=== PATIENT | female | born 1950 | race Two or more races ===

== ENCOUNTER 2017-04-20 07:49 | Inpatient (IN) | payer OTHER ==
[~2017-04-20] VITALS: Ht 157.5 cm; Wt 59.7 kg
[~2017-04-20 07:49] MED LIST: ATOR20TA50 PO; CEPH500C PO; ERGO2000 PO; FURO40TA4 PO; GABA-497 PO; GLIP-116 PO; HYDR-2650 PO; METO25TA5 PO; TRAM50TA2 PO
[2017-04-20 08:46] LABS: Basophils # (auto) 0 uL; CONDITION Y; Eosinophils # (auto) 0 uL; Eosinophils % (auto) 0.2 % (0.0-7.0); Hematocrit 29.2 % (36.0-46.0); Hemoglobin 9.8 g/dL (12.2-16.2); Lymphocytes # (auto) 0.6 uL; Lymphocytes % (auto) 6.2 % (10.0-50.0); Mean Corpuscular Hemoglobin 31.6 pg (28.0-32.0); Mean Corpuscular Hgb Conc. 33.6 g/dL (32.0-36.0); Mean Corpuscular Volume 94.1 fL (80.0-100.0); Mean Platelet Volume 8.7 fL (7.4-10.4); Monocytes # (auto) 0.4 uL; Monocytes % (auto) 4.6 % (0.0-12.0); Neutrophils # (auto) 8.7 uL; Platelet Count (auto) 172 10^3/uL (140-450); Red Cell Distribution Width 15.4 % (11.6-16.0); White Blood Cell 9.8 10^3/uL (4.4-10.8)
[2017-04-20 08:53] LABS: Albumin 3.6 g/dL (3.4-5.0); Calcium 7.8 mg/dL (8.5-10.1)
[2017-04-20 08:56] LABS: Potassium 7.8 mmol/L (3.5-5.1)
[2017-04-20 09:01] LABS: BUN/Creatinine Ratio 8.4; Bilirubin, Total 0.6 mg/dL (0.2-1.0); Total Protein 7.1 g/dL (6.4-8.2)
[2017-04-20] MEDS ORDERED: ALBUTEROL SULF 2.5 MG/0.5ML(0.5%) NEB SOLN NEB STA (09:14)
[2017-04-20] MEDS ORDERED: DEXTROSE (50%) 50ML SYRG IV ONE (09:15)
[2017-04-20] MEDS ORDERED: InsuLIN REG 1unit/0.01ml Soln (100units/ml) IV ONE (09:15)
[2017-04-20] MEDS ORDERED: SODIUM POLYSTYRENE SULF 15GM/60ML SUSP PO ONE (09:15)
[2017-04-20] MEDS ORDERED: CALCIUM GLUC 4.65 MEQ/10ML 4.65 MEQ in SODIUM CHL 0.9% 50 ML IV ONE (09:15)
[2017-04-20] MEDS ORDERED: SODIUM BICARBONATE 8.4% INJ 50ML SYRINGE IV ONE (09:15)
[2017-04-20] MEDS ORDERED: FUROSEMIDE 20 MG/2 ML VIAL IV ONE (09:15)
[2017-04-20] MEDS ORDERED: cefTRIAXone 1GM/50ML D5W 50 ML IV ONE (14:00)
[2017-04-20] MEDS ORDERED: VANCOMYCIN PER PHARMACY 0 MG IV SCH (14:00)
[2017-04-20] MEDS ORDERED: MORPHINE SULF INJ 2 MG/ML SYRINGE 1ML IV PRN ×2 (14:15)
[2017-04-20] MEDS ORDERED: ACETAMINOPHEN 325 MG TAB PO PRN (14:15)
[2017-04-20] MEDS ORDERED: ONDANSETRON HCL 4 MG/2 ML VIAL IV PRN (14:15)
[2017-04-20] MEDS ORDERED: DEXTROSE (50%) 50ML SYRG IV PRN (14:15)
[2017-04-20] MEDS ORDERED: DOCUSATE SOD 100 MG CAP PO PRN (14:15)
[2017-04-20] MEDS ORDERED: HYDROcodone-ACET 5/325MG TAB PO PRN (14:15)
[2017-04-20] MEDS ORDERED: NITROGLYCERIN 0.4 MG SL TAB SL PRN (14:15)
[2017-04-20] MEDS ORDERED: TEMAZEPAM 15 MG CAP PO PRN (14:15)
[2017-04-20] MEDS: FAMOTIDINE 20 MG TAB PO SCH (14:45)
[2017-04-20 14:48] LABS: Lactic Acid w/Reflex 3.9 mmol/L (0.4-2.0)
[2017-04-20 14:50] LABS: REFLEX LACTIC ACID YES OR NO YES
[2017-04-20 14:51] LABS: B-Type Natriuretic Peptide 4068.3 pg/mL (0-100); Temperature: 23.5 C (20.0-25.0)
[2017-04-20] MEDS ORDERED: EPOETIN ALFA 10,000 UNIT/1 ML VIAL SC ONE (15:15)
[2017-04-20] MEDS ORDERED: HEPARIN SODIUM (PORCINE) 5000 UNITS/ML 1ML VIAL IV ONE (15:15)
[2017-04-20] MEDS ORDERED: VANCOMYCIN 1GM/250ML D5W 250 ML IV ONE (15:30)
[2017-04-20] MEDS ORDERED: EPOETIN ALFA 3,000 UNIT/1 ML VIAL IV ONE (16:00)
[2017-04-20] MEDS ORDERED: EPOETIN ALFA 2,000 UNIT/1 ML VIAL IV ONE (16:00)
[2017-04-20] MEDS: ACCU-CHEK COMFORT CURVE STRIP VI SCH ×2 (17:00→22:00)
[2017-04-20] MEDS: InsuLIN REG 1unit/0.01ml Soln (100units/ml) SC SCH ×2 (17:00→22:00)
[2017-04-20] MEDS: SODIUM CHLOR 0.9% PF (SALINE LOCK) 10ML VIAL IV SCH (19:14)
[2017-04-20 20:58] LABS: BUN/Creatinine Ratio 6.7; Calcium 8.1 mg/dL (8.5-10.1); Potassium 4.7 mmol/L (3.5-5.1)
[2017-04-20] MEDS ORDERED: LORazepam 2MG/ML-1ML VIAL ONE (21:25)
[2017-04-20] MEDS ORDERED: LORazepam 2MG/ML-1ML VIAL IV ONE (21:30)
[2017-04-20] MEDS: TICAGRELOR 90 MG TAB PO SCH (21:49)
[2017-04-21 04:05] LABS: Basophils # (auto) 0 uL; Basophils % (auto) 0.1 % (0.0-2.0); CONDITION Y; Eosinophils # (auto) 0 uL; Eosinophils % (auto) 0.1 % (0.0-7.0); Hematocrit 28.3 % (36.0-46.0); Hemoglobin 9.6 g/dL (12.2-16.2); Lymphocytes # (auto) 0.4 uL; Mean Corpuscular Hemoglobin 31.6 pg (28.0-32.0); Mean Corpuscular Hgb Conc. 33.8 g/dL (32.0-36.0); Mean Corpuscular Volume 93.6 fL (80.0-100.0); Mean Platelet Volume 8.5 fL (7.4-10.4); Monocytes # (auto) 0.6 uL; Monocytes % (auto) 6.9 % (0.0-12.0); Neutrophils % (auto) 88.9 % (37.0-80.0); Platelet Count (auto) 169 10^3/uL (140-450); Red Cell Distribution Width 15.3 % (11.6-16.0)
[2017-04-21 04:26] LABS: Albumin 3.3 g/dL (3.4-5.0); BUN/Creatinine Ratio 6.5; Calcium 7.9 mg/dL (8.5-10.1); Potassium 5.1 mmol/L (3.5-5.1)
[2017-04-21 04:37] LABS: Bilirubin, Total 0.9 mg/dL (0.2-1.0); Total Protein 6.2 g/dL (6.4-8.2)
[2017-04-21] MEDS: SODIUM CHLOR 0.9% PF (SALINE LOCK) 10ML VIAL IV SCH ×3 (05:25→22:00)
[2017-04-21] MEDS: ACCU-CHEK COMFORT CURVE STRIP VI SCH ×4 (06:09→22:00)
[2017-04-21] MEDS: InsuLIN REG 1unit/0.01ml Soln (100units/ml) SC SCH ×4 (06:10→22:00)
[2017-04-21] MEDS: cefTRIAXone 1GM/50ML D5W 50 ML IV SCH (09:20)
[2017-04-21] MEDS ORDERED: MULTIPLE VITAMIN TAB PO SCH (10:00)
[2017-04-21] MEDS: TICAGRELOR 90 MG TAB PO SCH ×2 (10:53→22:00)
[2017-04-21] MEDS: FAMOTIDINE 20 MG TAB PO SCH (10:54)
[2017-04-21] MEDS ORDERED: cloNIDine HCL 0.1 MG TAB PO PRN (11:30)
[2017-04-21 12:31] LABS: Urine Bilirubin Negative (Negative); Urine Color Yellow (Yellow); Urine Nitrite Negative (Negative); Urine RBC 9 /hpf (0 - 4); Urine Squamous Epithelial Cell MOD /hpf (<5); Urine Urobilinogen Normal (Negative); Urine pH 8.5 (5.0-8.0)
[2017-04-21 12:33] LABS: Urine Blood 1+ /uL (Negative); Urine Glucose 3+ mg/dL (Normal); Urine Ketone 1+ (Negative)
[2017-04-21] MEDS ORDERED: MORPHINE SULFATE 4 MG/ML SYRG IV PRN ×2 (13:52→13:53)
[2017-04-21] MEDS ORDERED: AMLO10TA2 PO (17:42)
[2017-04-21] MEDS ORDERED: TICA90TA PO (17:42)
[2017-04-21] MEDS ORDERED: VITA400T4 PO (17:42)
[2017-04-21] MEDS ORDERED: HYDR-4069 PO (17:42)
[2017-04-21 20:00] VITALS: BP 156/74
[2017-04-21 21:16] VITALS: BP 156/74
[2017-04-22] VITALS (7 sets, daily range): BP systolic 136–184; BP diastolic 60–89
[2017-04-22] MEDS: SODIUM CHLOR 0.9% PF (SALINE LOCK) 10ML VIAL IV SCH (06:08)
[2017-04-22] MEDS: ACCU-CHEK COMFORT CURVE STRIP VI SCH (06:45)
[2017-04-22] MEDS: InsuLIN REG 1unit/0.01ml Soln (100units/ml) SC SCH (06:45)
[2017-04-22 07:44] LABS: Basophils # (auto) 0 uL; Basophils % (auto) 0.3 % (0.0-2.0); CONDITION Y; Eosinophils # (auto) 0.2 uL; Eosinophils % (auto) 2.7 % (0.0-7.0); Hematocrit 25.3 % (36.0-46.0); Hemoglobin 8.6 g/dL (12.2-16.2); Lymphocytes # (auto) 0.8 uL; Lymphocytes % (auto) 9.4 % (10.0-50.0); Mean Corpuscular Hemoglobin 31.9 pg (28.0-32.0); Mean Corpuscular Hgb Conc. 34.2 g/dL (32.0-36.0); Mean Corpuscular Volume 93.5 fL (80.0-100.0); Mean Platelet Volume 9.3 fL (7.4-10.4); Monocytes # (auto) 0.6 uL; Monocytes % (auto) 6.8 % (0.0-12.0); Neutrophils # (auto) 6.8 uL; Neutrophils % (auto) 80.8 % (37.0-80.0); Platelet Count (auto) 149 10^3/uL (140-450); Red Cell Distribution Width 14.9 % (11.6-16.0); White Blood Cell 8.4 10^3/uL (4.4-10.8)
[2017-04-22 07:57] LABS: Albumin 2.9 g/dL (3.4-5.0); BUN/Creatinine Ratio 6.6; Bilirubin, Total 0.9 mg/dL (0.2-1.0); Potassium 4.7 mmol/L (3.5-5.1); Total Protein 6.2 g/dL (6.4-8.2)
[2017-04-22] MEDS: cefTRIAXone 1GM/50ML D5W 50 ML IV SCH (09:11)
[2017-04-22] MEDS ORDERED: EPOETIN ALFA 2,000 UNIT/1 ML VIAL IV ONE (10:45)
[2017-04-22] MEDS ORDERED: EPOETIN ALFA 3,000 UNIT/1 ML VIAL IV ONE (10:45)
== END 2017-04-22 18:20 | disposition home or self-care (01) | DRG 682 ==
LOC: ER 07:49 → EDBD 07:49 → TELE 07:50 → TELE-E-ADS 04-21 15:26 → TELE-CENTR 04-21 17:36
PROVIDERS: ADMIT Internal Medicine; ATTEND Internal Medicine Pulmonary Disease
PROC: 5A1D00Z (ICD-10-PCS; principal; 2017-04-22)
DX: I13.11 Hypertensive heart and chronic kidney disease without heart failure, with stage 5 chronic kidney disease, or end stage renal disease (principal); G93.41 Metabolic encephalopathy; N18.6 End stage renal disease; N12 Tubulo-interstitial nephritis, not specified as acute or chronic; E87.5 Hyperkalemia; E11.21 Type 2 diabetes mellitus with diabetic nephropathy; D63.8 Anemia in other chronic diseases classified elsewhere; E11.22 Type 2 diabetes mellitus with diabetic chronic kidney disease; G47.00 Insomnia, unspecified; K59.00 Constipation, unspecified; K80.20 Calculus of gallbladder without cholecystitis without obstruction; Z79.84 Long term (current) use of oral hypoglycemic drugs; Z79.899 Other long term (current) drug therapy; Z83.3 Family history of diabetes mellitus; Z87.891 Personal history of nicotine dependence; Z99.2 Dependence on renal dialysis
CPT/HCPCS: 36415; 71010; 74176; 80048; 80053; 80202; 81001; 82962; 83036; 83605; 83880; 84132; 84443; 84484; 85025; 87040; 87081; 87086; 90935; 93005; 94640; 96365; 96367; 96375; 99291; J0696; J1815; Q4081